=== PATIENT | female | born 1995 | race Caucasian/White ===

== ENCOUNTER → 2016-03-18 | Outpatient (CLI) | payer OTHER ==
--- NOTE | 2016-03-18 16:18 | US ---
Ultrasound Abdomen Retroperitoneum, Complete Clinical Indications: K 10.9, left flank pain, prior urinary tract infection Comparison: None. Findings: The right kidney measures 10.6 x 4.4 x 4.4 cm. The left kidney measures 10.2 x 4.3 x 4 cm . Both kidneys demonstrate no hydronephrosis, definite shadowing calculi, or perinephric fluid. Righ t renal cortical thickness 1 cm and left renal cortical thickness 1.2 cm. Images of the bladder demonstrate patent bilateral ureteral jets with color flow imaging. Prevoid moises dder volume 459 mL. Postvoid bladder residual is 2 mL. No shadowing bladder calculi. Impression: 1. No hydronephrosis. 2. Normal renal ultrasound. Findings and recommendations discussed with Char Parks at 16:17 hour, 03/18/2016. Final report concurs with initial preliminary interpretation.
== END ==
LOC: FIMAGING 15:18
PROVIDERS: ATTEND Physician Assistant Medical
DX: R10.9 Unspecified abdominal pain (principal)